=== PATIENT | male | born 1940 | race Caucasian/White ===

== ENCOUNTER 2020-10-21 08:00 | Observation (INO) | payer MEDICARE ==
[2020-10-20 12:09] LABS: BASOPHILS % (AUTO) 0.2 % (0.0-5.0); HEMATOCRIT 39.1 % (36-48); LYMPHOCYTES % (AUTO) 29.5 % (21.0-51.0); MEAN CORPUSCULAR HEMOGLOBIN 32.4 pg (27.0-33.0); MEAN CORPUSCULAR HGB CONC 32.5 g/dL (32.0-36.0); MEAN CORPUSCULAR VOLUME 99.7 fL (79-99); MONOCYTES % (AUTO) 12.8 % (3.0-13.0); PLATELET COUNT (AUTO) 141 K/uL (130-400); RED BLOOD CELL COUNT(AUTO) 3.92 MIL/uL (4.00-5.50); RED CELL DISTRIBUTION WIDTH 13.2 % (11.0-15.5); WHITE BLOOD COUNT (AUTO) 4.4 K/uL (4.8-10.8)
[2020-10-20 12:15] LABS: POTASSIUM 4.7 mmol/L (3.5-5.1)
[~2020-10-21] VITALS: Ht 167.6 cm; Wt 88.0 kg
[2020-10-24 09:57] VITALS: BP 147/63
[2020-10-24] MEDS ORDERED: LOSA50TA64 PO (10:36)
[2020-10-24] MEDS ORDERED: ALLO300T2 PO (10:36)
[2020-10-24] MEDS ORDERED: PROP40TA7 PO (10:36)
[2020-10-24] MEDS ORDERED: HYDR200T4 PO (10:36)
[2020-10-24] MEDS ORDERED: HYDR25TA PO (10:36)
[2020-10-24] MEDS ORDERED: MULT-1289 PO (10:36)
[2020-10-25] VITALS (24 sets, daily range): BP systolic 124–154; BP diastolic 50–72
[2020-10-25] MEDS: CEFAZOLIN SODIUM 1 GM VIAL IVP SCH ×4 (06:00→19:30)
[2020-10-25] MEDS ORDERED: LACTATED RINGERS 1000ML 1,000 ML IV ONE (06:40)
[2020-10-25] MEDS ORDERED: CEFAZOLIN SODIUM 1 GM VIAL ONE ×2 (06:45→10:44)
[2020-10-25] MEDS ORDERED: THROMBIN-JMI 20000 UNIT KIT TP ONE (06:46)
[2020-10-25] MEDS ORDERED: DURAMORPH PF1 MG/ML 10ML AMP IV ONE (06:46)
[2020-10-25] MEDS ORDERED: DEXAMETHASONE SOD PHOSPHATE 10MG/ML 1ML VIAL ONE ×2 (06:47→06:49)
[2020-10-25] MEDS ORDERED: SUCCINYLCHOLINE CHLORIDE 20 MG/ML 10 ML VIAL ONE (06:47)
[2020-10-25] MEDS ORDERED: PROPOFOL 10 MG/ML 20ML VIAL IV ONE (06:47)
[2020-10-25] MEDS ORDERED: MIDAZOLAM HCL 1 MG/ML 2ML VIAL ONE (06:47)
[2020-10-25] MEDS ORDERED: LIDOCAINE PF 2% 5ML ABBOJECT ONE (06:47)
[2020-10-25] MEDS ORDERED: GLYCOPYRROLATE 1 MG/5 ML SYRINGE ONE (06:47)
[2020-10-25] MEDS ORDERED: NEOSTIGMINE 5MG/5ML SYR IV ONE (06:47)
[2020-10-25] MEDS ORDERED: ONDANSETRON HCL 4 MG/2 ML VIAL ONE (06:48)
[2020-10-25] MEDS ORDERED: FENTANYL CITRATE PF 50 MCG/1 ML 2ML VIAL ONE (06:48)
[2020-10-25] MEDS ORDERED: ROCURONIUM 10MG/1ML SYR 10 MG/ML ML ONE ×2 (06:48→08:07)
[2020-10-25] MEDS ORDERED: BUPIVACAINE/EPI/PF 0.25% 30ML VIAL IJ SCH (07:00)
[2020-10-25] MEDS ORDERED: EPHEDRINE SULFATE 50 MG/ML AMPULE ONE (09:06)
[2020-10-25] MEDS ORDERED: ARTIFICIAL TEARS 3.5 GM OINTMENT ONE (10:56)
[2020-10-25] MEDS ORDERED: PROMETHAZINE HCL 25 MG/ML 1ML AMPULE IM PRN (11:30)
[2020-10-25] MEDS ORDERED: MORPHINE SULFATE 2 MG/ML 1ML SYG IVP PRN (11:30)
[2020-10-25] MEDS ORDERED: SODIUM CHLORIDE 0.9% 10 ML VIAL IVP PRN (11:30)
[2020-10-25] MEDS ORDERED: LACTATED RINGERS 1000ML 1,000 ML IV SCH (11:30)
[2020-10-25] MEDS: DEXAMETHASONE SOD PHOSPHATE 4 MG/ML 1ML VIAL IVP SCH ×3 (13:49→19:45)
[2020-10-25] MEDS: HYDROCODONE/ACETAMINOPHEN 5/325 MG TAB PO PRN ×2 (17:51→22:23)
[2020-10-25] MEDS ORDERED: HYDROXYCHLOROQUINE SULFATE 200 MG TAB ONE (19:15)
[2020-10-25] MEDS ORDERED: PROPRANOLOL HCL 20 MG TAB ONE (19:15)
[2020-10-25] MEDS ORDERED: ALLOPURINOL 300 MG TABLET ONE (19:16)
[2020-10-25] MEDS: PROPRANOLOL HCL 20 MG TAB PO SCH (19:46)
[2020-10-25] MEDS: HYDROXYCHLOROQUINE SULFATE 200 MG TAB PO SCH (19:46)
[2020-10-25] MEDS ORDERED: ALLOPURINOL 300 MG TABLET PO SCH (21:00)
[2020-10-26] MEDS: DEXAMETHASONE SOD PHOSPHATE 4 MG/ML 1ML VIAL IVP SCH ×2 (04:18→12:09)
[2020-10-26 04:30] VITALS: BP 138/70
[2020-10-26 08:00] VITALS: BP 122/66
[2020-10-26] MEDS ORDERED: HYDROCHLOROTHIAZIDE 25 MG TABLET PO SCH (09:00)
[2020-10-26] MEDS ORDERED: MULTIVITAMIN WITH MINERALS TABLET PO SCH (09:00)
[2020-10-26] MEDS ORDERED: LOSARTAN 50 MG TABLET PO SCH (09:00)
[2020-10-26] MEDS: PROPRANOLOL HCL 20 MG TAB PO SCH (09:01)
[2020-10-26] MEDS: HYDROXYCHLOROQUINE SULFATE 200 MG TAB PO SCH (09:01)
[2020-10-26 12:02] VITALS: BP 141/59
== END 2020-10-26 15:52 | disposition home or self-care (01) ==
LOC: EDSTATUS 08:00 → EDSEX 10-25 06:02 → DAHIP 10-25 06:02 → 4AH 10-25 12:55
PROVIDERS: ADMIT Neurological Surgery; ATTEND Neurological Surgery
DX: M48.07 Spinal stenosis, lumbosacral region (principal); Z20.822 Contact with and (suspected) exposure to COVID-19; D86.9 Sarcoidosis, unspecified; Z79.899 Other long term (current) drug therapy
CPT/HCPCS: 36415; 63047; 63048 ×3; 71045; 72020; 80051; 85025; 96361; 96374; 96375; 96376 ×2; A4215; A4221; A4222; A4223; A4344; A4600; A4649 ×4; A4663; A6260; G0378 ×29; J0330; J0690 ×4; J1100 ×8; J2001; J2250; J2274; J2405; J2704; J2710; J3010; J3490 ×3; J7120 ×3; U0003

== ENCOUNTER → 2020-12-15 | Outpatient (CLI) | payer MEDICARE ==
[~2020-12-15] MED LIST: ALLO300T2 PO; HYDR200T4 PO; HYDR25TA PO; LOSA50TA64 PO; MULT-1289 PO; PROP40TA7 PO
== END | disposition home or self-care (01) ==
LOC: RAH 10:41
PROVIDERS: ATTEND Physical Medicine & Rehabilitation
DX: I73.9 Peripheral vascular disease, unspecified (principal)
CPT/HCPCS: 93925